=== PATIENT | female | born 1985 | race Caucasian/White ===

== ENCOUNTER 2023-03-18 21:35 | Emergency (ER) | payer SELFPAY ==
[~2023-03-18] VITALS: Ht 162.6 cm; Wt 92.1 kg
[2023-03-18 21:44] VITALS: BP 130/84; PULSE 88; RESP 16; TEMP 97.4; O2SAT 100
[2023-03-18 22:24] VITALS: BP 134/82; PULSE 88; RESP 16; TEMP 97.3; O2SAT 100
[2023-03-18] MEDS ORDERED: LIDOCAINE/EPI MPF 1%1:200000 30 ML VIAL INJ ONE (22:35)
[2023-03-19] MEDS ORDERED: AMOX1TAB8 PO (00:02)
[2023-03-19] MEDS ORDERED: SULF-59 PO (00:02)
== END 2023-03-19 00:06 | disposition home or self-care (01) ==
LOC: MED 21:35
DX: K61.0 Anal abscess (principal)
CPT/HCPCS: 46050; 99284; J2001